=== PATIENT | female | born 1960 | race Caucasian/White ===

== ENCOUNTER 2022-04-02 07:10 | Day surgery (SDC) | payer MEDICARE ==
[~2022-04-02] VITALS: Ht 162.6 cm; Wt 99.9 kg
[~2022-04-02 07:10] MED LIST: ALBU90OI61 INH; AMIT25 PO; ASPI81CH PO; ASPI81EC PO; Anastrozole1 GM PO; Aspirin EC81 MG PO; Bactrim Ds Tab1 EACH PO; CALCA500CH PO; CALCAVITD PO; CHEMOTHERAPY; CHOL10002 PO; CIPR500 PO; CLIN150 PO; DIPATR PO; ERGO400 PO; EXEM25 PO; FISH1000; FURO20; FURO20 PO; HYDPAM50 PO; IBUP800 PO; LANS30EC PO; MORP10S; MORP30 PO; MORP30ER PO; MORPHINE PUMP; MORPHINE SU; Morphine Sulfate; NAPR220 PO; NAUSEA MED; OMEP10ER PO; OMEP20ER PO; OXYACE5T PO; OXYC30 PO; OXYC30ER PO; Omeprazole20 M1 PO; POTCHL10ER PO; PRAV20 PO; PROM25 PO; Pravastatin Sod80 MG PO; STOOL SOFTENER100 MG; Stool Softener100 MG PO; TIZA4 PO; TOCO1000 PO; [UNRECOGNIZED DRUG - OTHER]
--- NOTE | 2022-04-02 08:00 | NUR ---
History, Chart, Medications and Allergies reviewed before start of procedure. Patient States Post-Procedure ride home has been arranged.
[2022-04-02] MEDS ORDERED: FURO20 PO (08:22)
[2022-04-02] MEDS ORDERED: POTA8 PO (08:23)
--- NOTE | 2022-04-02 08:34 | NUR ---
04/02/22 0833 Samina Leal History, Chart, Medications and Allergies reviewed before start of procedure. Patient confirms NPO status and agrees with scheduled surgery. 3-LEAD EKG REVIEWED WITH PHYSICIAN PRIOR TO START OF PROCEDURE. MONITOR INTACT WITH CONTINUOUS PULSE OXIMETRY AND INTERMITTENT BP. PATIENT DETERMINED TO BE ASA APPROPRIATE FOR PROPOFOL SEDATION PRIOR TO START OF PROCEDURE BY
--- NOTE | 2022-04-02 09:38 | NUR ---
REPORT FROM SUNITHA VILLARREAL RN. PT AXOX4, ABLE TO REPOSITION SELF IN BED. REQUESTING PO FLUIDS.
--- NOTE | 2022-04-02 09:49 | NUR ---
PT TOLERATING PO FLUIDS AND FOOD, REQUESTING TO GO HOME SOON.
--- NOTE | 2022-04-02 10:11 | NUR ---
Patient up to Ambulate independently. Gait steady. Discharge instructions reviewed with patient. Patient verbalizes understanding. Copy given to patient to take home. Patient States Post-Procedure ride home has been arranged. Discharged via wheelchair to private car for ride home. ALL BELONGINGS RETURNED TO PATIENT, TO INCLUDE ONE CELL PHONE AND ONE PAIR OF GLASSES.
== END 2022-04-02 23:31 | disposition home or self-care (01) ==
LOC: ORSCMMR 07:10 → ORD 08:30 → ORSCMMR 08:30 → ORSCSDS 08:30 → ORSCMMR 23:31
PROVIDERS: Surgery
PROC: 0DB78ZX Excision of Stomach, Pylorus, Via Natural or Artificial Opening Endoscopic, Diagnostic (ICD-10-PCS; principal; 2022-04-02 08:30)
PROC: 0DJD8ZZ Inspection of Lower Intestinal Tract, Via Natural or Artificial Opening Endoscopic (ICD-10-PCS; principal; 2022-04-02 08:30)
PROC: 0DB48ZX Excision of Esophagogastric Junction, Via Natural or Artificial Opening Endoscopic, Diagnostic (ICD-10-PCS; principal; 2022-04-02 08:30)
DX: Z12.11 Encounter for screening for malignant neoplasm of colon (principal); Z86.010 Personal history of colon polyps; K21.00 Gastro-esophageal reflux disease with esophagitis, without bleeding; K29.70 Gastritis, unspecified, without bleeding; F17.210 Nicotine dependence, cigarettes, uncomplicated; Z86.73 Personal history of transient ischemic attack (TIA), and cerebral infarction without residual deficits; Z79.899 Other long term (current) drug therapy
CPT/HCPCS: 43239; G0105; 88305; 88312; 88342; J2704; J7120

== ENCOUNTER 2023-08-05 07:53 | Emergency (ER) | payer MEDICARE ==
[~2023-08-05] VITALS: Ht 162.6 cm; Wt 104.3 kg
[~2023-08-05 07:53] MED LIST changes: +POTA8 PO
[2023-08-05 08:49] VITALS: BP 131/70
[2023-08-05 09:29] LABS: BASOPHILS ABSOLUTE AUTO 0.02 K/mm3 (0.00-0.23); BASOPHILS PERCENT AUTO 0 % (0-2); EOSINOPHILS ABSOLUTE AUTO 0.05 K/mm3 (0.00-0.68); EOSINOPHILS PERCENT AUTO 1 % (0-6); Hematocrit 35.9 % (33.0-51.0); Hemoglobin 11.4 g/dL (11.5-16.0); IMMATURE GRAN ABSOLUTE AUTO 0.01 K/mm3 (0.00-0.10); IMMATURE GRAN PERCENT AUTO 0 % (0-1); LYMPHOCYTES ABSOLUTE AUTO 2.02 K/mm3 (0.84-5.20); LYMPHOCYTES PERCENT AUTO 45 % (21-46); MONOCYTES ABSOLUTE AUTO 0.33 K/mm3 (0.16-1.47); MONOCYTES PERCENT AUTO 7 % (4-13); Mean Corpuscular HGB 30.5 pg (26.0-34.0); Mean Corpuscular HGB Conc 31.8 g/dL (31.5-36.5); Mean Corpuscular Volume 96 fL (80-100); Mean Platelet Volume 10.6 fL (9.1-12.4); NEUTROPHILS ABSOLUTE AUTO 2.06 K/mm3 (1.96-9.15); NEUTROPHILS PERCENT AUTO 46 % (41-73); Platelet Count 148 K/mm3 (150-400); RDW Coefficient Variation 14.3 % (11.7-14.2); RDW Standard Deviation 50.6 fL (35.1-46.3); Red Blood Cell Count 3.74 M/mm3 (3.80-5.20); White Blood Cell Count 4.49 K/mm3 (4.00-11.30)
[2023-08-05 09:48] LABS: Albumin, Blood 3.5 g/dL (3.4-5.0); Bilirubin, Total 0.3 mg/dL (0.1-1.0); Bun/Creatinine Ratio 18.1 (12.0-20.0); Calcium, Blood 8.7 mg/dL (8.5-10.1); Creatinine, Blood 0.88 mg/dL (0.40-1.00); Globulin, Blood 3.6 g/dL (2.2-4.0); Potassium, Blood 4.1 mmol/L (3.5-5.5); Total Protein, Blood 7.1 g/dL (6.4-8.2)
== END 2023-08-05 12:38 | disposition home or self-care (01) ==
LOC: ER 07:53
PROVIDERS: Physician Assistant
DX: R07.9 Chest pain, unspecified (principal); Z88.8 Allergy status to other drugs, medicaments and biological substances; Z88.5 Allergy status to narcotic agent; Z79.899 Other long term (current) drug therapy; Z79.82 Long term (current) use of aspirin; Z85.3 Personal history of malignant neoplasm of breast; F17.200 Nicotine dependence, unspecified, uncomplicated
CPT/HCPCS: 80053; 83880; 84484; 85025; 85379; 93005; 93010; 99285-25

== ENCOUNTER 2023-09-18 03:34 | Inpatient (IN) | payer MEDICARE ==
[~2023-09-18] VITALS: Ht 162.6 cm; Wt 106.8 kg
[~2023-09-18 03:34] MED LIST changes: -CALCA500CH PO; +Calcium Carbon500 MG PO; +FURO80 PO; +VITAMIN D31000 UNI1 PO
[2023-09-18 04:04] LABS: Base Excess Venous 6.7 mmol/L; Bicarbonate Venous 29.6 mmol/L (24.0-30.0); PCO2 Venous 48.4 mmHg (38-42); pH Blood Venous 7.42 (7.34-7.37)
[2023-09-18] MEDS ORDERED: IPRAT-ALBUT 0.5-3 ML INH (04:05)
[2023-09-18] MEDS ORDERED: ROSUVASTATIN CA10 MG PO (04:05)
[2023-09-18] MEDS ORDERED: SPIRONOLACTONE25 MG PO (04:05)
[2023-09-18 04:08] LABS: BASOPHILS ABSOLUTE AUTO 0.01 K/mm3 (0.00-0.23); BASOPHILS PERCENT AUTO 0 % (0-2); EOSINOPHILS PERCENT AUTO 0 % (0-6); Hematocrit 36.6 % (33.0-51.0); Hemoglobin 11.7 g/dL (11.5-16.0); IMMATURE GRAN ABSOLUTE AUTO 0.02 K/mm3 (0.00-0.10); IMMATURE GRAN PERCENT AUTO 0 % (0-1); LYMPHOCYTES PERCENT AUTO 52 % (21-46); MONOCYTES ABSOLUTE AUTO 0.28 K/mm3 (0.16-1.47); MONOCYTES PERCENT AUTO 6 % (4-13); Mean Corpuscular Volume 94 fL (80-100); Mean Platelet Volume 10.3 fL (9.1-12.4); NEUTROPHILS ABSOLUTE AUTO 1.91 K/mm3 (1.96-9.15); NEUTROPHILS PERCENT AUTO 41 % (41-73); Platelet Count 119 K/mm3 (150-400); RDW Coefficient Variation 15.1 % (11.7-14.2); White Blood Cell Count 4.62 K/mm3 (4.00-11.30)
[2023-09-18 04:21] LABS: Albumin, Blood 3.4 g/dL (3.4-5.0); Albumin/Globulin Ratio 0.9 (0.8-1.8); Bilirubin, Total 0.2 mg/dL (0.1-1.0); Bun/Creatinine Ratio 6.3 (12.0-20.0); Calcium, Blood 8.2 mg/dL (8.5-10.1); Creatinine, Blood 0.8 mg/dL (0.40-1.00); Globulin, Blood 3.9 g/dL (2.2-4.0); Total Protein, Blood 7.3 g/dL (6.4-8.2)
[2023-09-18 04:59] LABS: Influenza A, PCR NEGATIVE (NEGATIVE); Influenza B, PCR NEGATIVE (NEGATIVE); Resp Syncytial Virus, PCR NEGATIVE (NEGATIVE); SARS-Cov-2 (COVID-19) PCR, MMC NEGATIVE (NEGATIVE)
[2023-09-18] MEDS ORDERED: ALPRAZOLAM0.5 M1 PO (06:27)
[2023-09-18] MEDS ORDERED: ESCI20 PO (06:27)
[2023-09-18] MEDS ORDERED: BUMETANIDE2 M6 PO (06:28)
[2023-09-18] MEDS ORDERED: KLOR-CON 1010 ME1 PO (06:28)
[2023-09-18 08:02] VITALS: BP 147/73
--- NOTE | 2023-09-18 11:53 | NUR ---
Received pt at 0800 from ED awake and alert x3. Audible exp wheeze noted. Pt able to move from cart to bed. Denies pain. VSS. Oriented to room and call light. BSC next to bed. Pt encouraged to call for ast as needed. Educated pt on IS and flutter valve with return demonstration. Encouraged to use 10 times/hour, just not all at one time.
--- NOTE | 2023-09-18 17:00 | NUR ---
SHIFT SUMMARY; Pt remains A&Ox3 this shift. VSS. Denies pain. Resp even nonlabored at rest with 4L NC. Increased dyspnea with exertion to BSC independently. Pt using IS and flutter appropriately. Awaiting collection of sputum for culture. Specimen container at bedside. Pt instructed to call when expectorates. Sister at bedside and will take pt purse home. No further needs id or verbalized at this time. Will continue to monitor this shift.
[2023-09-18 19:37] VITALS: BP 146/74
--- NOTE | 2023-09-19 04:24 | NUR ---
REPORT RECEIVED VERIFIED A/O, PT CALM AND QUIET AND HAS NO COMPLAINTS, RT IN WITH PT FOR TREATMENT, PT STATED SHE WOULD CALL IF NEEDING ASSISTENCE. 0200 PT UNCOMFORTABLE AND HAS LUNG PAIN, NOTIFIED AND PT ORDERED PAIN MEDICATION. PT MELANI WELL AND IS NOW SLEEPING. WILL CONT TO MONITOR
[2023-09-19 04:55] VITALS: BP 143/71
[2023-09-19 05:02] LABS: Hematocrit 35.8 % (33.0-51.0); Hemoglobin 11.4 g/dL (11.5-16.0); Mean Corpuscular HGB 30.5 pg (26.0-34.0); Mean Corpuscular HGB Conc 31.8 g/dL (31.5-36.5); Mean Corpuscular Volume 96 fL (80-100); Platelet Count 129 K/mm3 (150-400); RDW Coefficient Variation 14.7 % (11.7-14.2); RDW Standard Deviation 51.6 fL (35.1-46.3); Red Blood Cell Count 3.74 M/mm3 (3.80-5.20); White Blood Cell Count 3.87 K/mm3 (4.00-11.30)
[2023-09-19 05:50] LABS: Albumin, Blood 3.3 g/dL (3.4-5.0); Albumin/Globulin Ratio 0.9 (0.8-1.8); Bilirubin, Total 0.3 mg/dL (0.1-1.0); Bun/Creatinine Ratio 17.4 (12.0-20.0); Calcium, Blood 8.2 mg/dL (8.5-10.1); Creatinine, Blood 0.75 mg/dL (0.40-1.00); Globulin, Blood 3.8 g/dL (2.2-4.0); Total Protein, Blood 7.1 g/dL (6.4-8.2)
[2023-09-19 05:54] LABS: BAND PERCENT MAN 7 % (0-8); BASOPHILS PERCENT MAN 0 % (0-2); EOSINOPHILS PERCENT MAN 0 % (0-6); LYMPHOCYTES % ATYPICAL MANUAL 1 % (0-0); LYMPHOCYTES ABSOLUTE MAN 1.08 K/mm3 (0.84-5.20); LYMPHOCYTES PERCENT MAN 27 % (21-46); MONOCYTES ABSOLUTE MAN 0.34 K/mm3 (0.16-1.47); MONOCYTES PERCENT MAN 9 % (4-13); MYELOCYTE ABSOLUTE MAN 0.07 K/mm3 (0.00-0.00); MYELOCYTE PERCENT MAN 2 % (0-0); NEUTROPHILS ABSOLUTE MAN 2.32 K/mm3 (1.96-9.15); PLASMA CELL ABSOLUTE MAN 0.03 K/mm3 (0.00-0.00); PLASMA CELLS PERCENT MAN 1 % (0-0); SEG NEUTROPHILS PERCENT MAN 53 % (41-73); TOTAL CELLS COUNTED 100
[2023-09-19 07:44] VITALS: BP 138/76
[2023-09-19 15:53] VITALS: BP 133/67
--- NOTE | 2023-09-19 17:37 | NUR ---
SHIFT SUMMARY: Pt remains A&OX3 this shift. Denies pain. VSS. Resp even nonlabored on 1L NC. Up to BSC independently. Xanax provided for anxiety. Tolerating diet and fluids. Pain and safety maintained. Will continue to monitor.
[2023-09-19 19:42] VITALS: BP 120/65
[2023-09-20 04:40] VITALS: BP 174/83
[2023-09-20 05:06] LABS: BASOPHILS ABSOLUTE AUTO 0.01 K/mm3 (0.00-0.23); BASOPHILS PERCENT AUTO 0 % (0-2); EOSINOPHILS PERCENT AUTO 0 % (0-6); Hematocrit 36.8 % (33.0-51.0); Hemoglobin 11.6 g/dL (11.5-16.0); IMMATURE GRAN ABSOLUTE AUTO 0.03 K/mm3 (0.00-0.10); IMMATURE GRAN PERCENT AUTO 0 % (0-1); LYMPHOCYTES ABSOLUTE AUTO 1.54 K/mm3 (0.84-5.20); LYMPHOCYTES PERCENT AUTO 19 % (21-46); MONOCYTES ABSOLUTE AUTO 0.25 K/mm3 (0.16-1.47); MONOCYTES PERCENT AUTO 3 % (4-13); Mean Corpuscular HGB 30.3 pg (26.0-34.0); Mean Corpuscular HGB Conc 31.5 g/dL (31.5-36.5); Mean Corpuscular Volume 96 fL (80-100); Mean Platelet Volume 11.3 fL (9.1-12.4); NEUTROPHILS ABSOLUTE AUTO 6.22 K/mm3 (1.96-9.15); NEUTROPHILS PERCENT AUTO 77 % (41-73); Platelet Count 143 K/mm3 (150-400); RDW Coefficient Variation 15.2 % (11.7-14.2); Red Blood Cell Count 3.83 M/mm3 (3.80-5.20); White Blood Cell Count 8.05 K/mm3 (4.00-11.30)
--- NOTE | 2023-09-20 05:33 | NUR ---
REPORT RECEIVED, PT A/O VERY TIRED REQUESTED TO SLEEP SO I INFORMED RATING OFFICER THAT AFTER VITALS TO LEAVE PT TO REST. PT MEDICATED FOR EVENING MEDS BUT QUICKLY FELL BACK ASLEEP, NO S/S OF DISTRESS. 0400 PT AWOKE VSS WERE TAKENA DN LABS DONE. PT C/O PAIN TO RIGHT CHEST WALL WHEN BREATHING SO PT WAS MEDICATED. WILL ALLOW PT TO SLEEP UNLESS NEEDING ASSISTENCE
[2023-09-20 05:44] LABS: Bun/Creatinine Ratio 23.5 (12.0-20.0); Calcium, Blood 8.5 mg/dL (8.5-10.1); Creatinine, Blood 0.85 mg/dL (0.40-1.00); Potassium, Blood 4.2 mmol/L (3.5-5.5)
[2023-09-20 07:26] VITALS: BP 162/86
[2023-09-20 10:10] VITALS: BP 131/55
[2023-09-20 15:27] VITALS: BP 154/63
[2023-09-20] MEDS ORDERED: AZIT250 PO (15:56)
[2023-09-20] MEDS ORDERED: PRED20 PO (15:57)
--- NOTE | 2023-09-20 16:48 | NUR ---
Upon receiving a referral for spiritual care, I visited the patient. She tells me about the events that led to her hospitalization, the support of her sisters and the [employer] eric that means so much to her. I provide therapeutic listening, levity and prayer. Patient responded well and showed signs of reduced stress and greater peace.
--- NOTE | 2023-09-20 17:20 | NUR ---
PT DISCHARGED HOME. DISCHARGE INSTRUCTIONS DISCUSSED WITH PT. SHE HAD NO QUESTIONS OR CONCERNS. 1L NC AT DISCHARGE.
== END 2023-09-20 17:07 | disposition home or self-care (01) | DRG 189 ==
LOC: ER 03:34 → MEDS 05:55 → ER 07:53 → MEDS 07:57
PROVIDERS: Emergency Medicine; Internal Medicine; ADMIT Internal Medicine
DX: J96.01 Acute respiratory failure with hypoxia (principal); J44.1 Chronic obstructive pulmonary disease with (acute) exacerbation; F17.210 Nicotine dependence, cigarettes, uncomplicated; K44.9 Diaphragmatic hernia without obstruction or gangrene; M54.9 Dorsalgia, unspecified; G89.29 Other chronic pain; F41.9 Anxiety disorder, unspecified; F32.A Depression, unspecified; E78.5 Hyperlipidemia, unspecified; Z88.8 Allergy status to other drugs, medicaments and biological substances; Z79.899 Other long term (current) drug therapy; Z88.2 Allergy status to sulfonamides; Z79.82 Long term (current) use of aspirin; Z79.01 Long term (current) use of anticoagulants; Z98.890 Other specified postprocedural states; Z90.710 Acquired absence of both cervix and uterus; Z11.52 Encounter for screening for COVID-19; Z85.3 Personal history of malignant neoplasm of breast
CPT/HCPCS: 0241U; 36415; 71045; 80048; 80053; 82803; 83605; 83735; 83880; 84145; 84484; 85025; 85379; 93005; 93010; 93306; 94640; 94664; 94760; 94761; 96374-59; 99285-25; A9270; J0456; J0696; J1650; J1940; J2930; J3010; J7050

== ENCOUNTER 2023-09-21 19:41 | Emergency (ER) | payer MEDICARE ==
[~2023-09-21] VITALS: Ht 175.3 cm; Wt 97.5 kg
[~2023-09-21 19:41] MED LIST changes: +ALPRAZOLAM0.5 M1 PO; +AZIT250 PO; +BUMETANIDE2 M6 PO; +ESCI20 PO; +IPRAT-ALBUT 0.5-3 ML INH; +KLOR-CON 1010 ME1 PO; +PRED20 PO; +ROSUVASTATIN CA10 MG PO; +SPIRONOLACTONE25 MG PO
[2023-09-21 20:53] LABS: BASOPHILS ABSOLUTE AUTO 0.02 K/mm3 (0.00-0.23); BASOPHILS PERCENT AUTO 0 % (0-2); EOSINOPHILS ABSOLUTE AUTO 0.02 K/mm3 (0.00-0.68); EOSINOPHILS PERCENT AUTO 0 % (0-6); Hematocrit 36.3 % (33.0-51.0); Hemoglobin 11.8 g/dL (11.5-16.0); IMMATURE GRAN ABSOLUTE AUTO 0.05 K/mm3 (0.00-0.10); IMMATURE GRAN PERCENT AUTO 1 % (0-1); LYMPHOCYTES ABSOLUTE AUTO 3.06 K/mm3 (0.84-5.20); LYMPHOCYTES PERCENT AUTO 42 % (21-46); MONOCYTES ABSOLUTE AUTO 0.52 K/mm3 (0.16-1.47); MONOCYTES PERCENT AUTO 7 % (4-13); Mean Corpuscular HGB 30.3 pg (26.0-34.0); Mean Corpuscular HGB Conc 32.5 g/dL (31.5-36.5); Mean Corpuscular Volume 93 fL (80-100); NEUTROPHILS ABSOLUTE AUTO 3.55 K/mm3 (1.96-9.15); NEUTROPHILS PERCENT AUTO 49 % (41-73); NRBC ABSOLUTE 0.05 K/mm3 (0.00-0.02); NRBC Auto 0.7 /100 WBC (0.0-0.2); RDW Coefficient Variation 15.2 % (11.7-14.2); RDW Standard Deviation 51.8 fL (35.1-46.3); Red Blood Cell Count 3.89 M/mm3 (3.80-5.20); White Blood Cell Count 7.22 K/mm3 (4.00-11.30)
[2023-09-21 20:57] LABS: Albumin, Blood 3.5 g/dL (3.4-5.0); Albumin/Globulin Ratio 0.9 (0.8-1.8); Bilirubin, Total 0.4 mg/dL (0.1-1.0); Bun/Creatinine Ratio 27.2 (12.0-20.0); Creatinine, Blood 0.77 mg/dL (0.40-1.00); Globulin, Blood 3.7 g/dL (2.2-4.0); Potassium, Blood 3.8 mmol/L (3.5-5.5); Total Protein, Blood 7.2 g/dL (6.4-8.2)
[2023-09-21 20:59] LABS: Mean Platelet Volume 11.3 fL (9.1-12.4)
[2023-09-21 21:17] LABS: Influenza A, PCR NEGATIVE (NEGATIVE); Influenza B, PCR NEGATIVE (NEGATIVE); Resp Syncytial Virus, PCR NEGATIVE (NEGATIVE); SARS-Cov-2 (COVID-19) PCR, MMC NEGATIVE (NEGATIVE)
[2023-09-21 21:19] LABS: Platelet Count 137 K/mm3 (150-400)
[2023-09-22] VITALS: BP 167/81
== END 2023-09-22 00:53 | disposition home or self-care (01) ==
LOC: ER 19:41
PROVIDERS: Student in an Organized Health Care Education/Training Program
DX: J44.1 Chronic obstructive pulmonary disease with (acute) exacerbation (principal); Z88.5 Allergy status to narcotic agent; Z88.8 Allergy status to other drugs, medicaments and biological substances; Z79.899 Other long term (current) drug therapy; Z79.82 Long term (current) use of aspirin; Z85.3 Personal history of malignant neoplasm of breast; F17.200 Nicotine dependence, unspecified, uncomplicated
CPT/HCPCS: 0241U; 71046; 80053; 83880; 84484; 85025; 93005; 93010; 94640; 94664; 96374; 99285-25; J2930

== ENCOUNTER 2024-03-08 04:31 | Day surgery (SDC) | payer MEDICARE | END 2024-03-08 23:15 | disposition home or self-care (01) | LOC: WOUND 04:31 | DX: L97.822 Non-pressure chronic ulcer of other part of left lower leg with fat layer exposed (principal); L97.219 Non-pressure chronic ulcer of right calf with unspecified severity; I73.9 Peripheral vascular disease, unspecified; I87.2 Venous insufficiency (chronic) (peripheral); J44.9 Chronic obstructive pulmonary disease, unspecified; I25.10 Atherosclerotic heart disease of native coronary artery without angina pectoris; I11.0 Hypertensive heart disease with heart failure; I50.9 Heart failure, unspecified; F17.200 Nicotine dependence, unspecified, uncomplicated; I25.2 Old myocardial infarction; Z88.8 Allergy status to other drugs, medicaments and biological substances | CPT/HCPCS: G0463 ==

== ENCOUNTER 2024-10-03 13:23 | Emergency (ER) | payer MEDICARE ==
[~2024-10-03] VITALS: Ht 162.6 cm; Wt 108.9 kg
[2024-10-03 14:02] VITALS: BP 160/64
[2024-10-03 14:31] LABS: BASOPHILS ABSOLUTE AUTO 0.02 K/mm3 (0.00-0.23); BASOPHILS PERCENT AUTO 0 % (0-2); EOSINOPHILS ABSOLUTE AUTO 0.16 K/mm3 (0.00-0.68); EOSINOPHILS PERCENT AUTO 3 % (0-6); Hematocrit 33.5 % (33.0-51.0); Hemoglobin 10.1 g/dL (11.5-16.0); IMMATURE GRAN ABSOLUTE AUTO 0.02 K/mm3 (0.00-0.10); IMMATURE GRAN PERCENT AUTO 0 % (0-1); LYMPHOCYTES ABSOLUTE AUTO 1.64 K/mm3 (0.84-5.20); LYMPHOCYTES PERCENT AUTO 27 % (21-46); MONOCYTES ABSOLUTE AUTO 0.37 K/mm3 (0.16-1.47); MONOCYTES PERCENT AUTO 6 % (4-13); Mean Corpuscular HGB 28.1 pg (26.0-34.0); Mean Corpuscular HGB Conc 30.1 g/dL (31.5-36.5); Mean Corpuscular Volume 93 fL (80-100); Mean Platelet Volume 9.3 fL (9.1-12.4); NEUTROPHILS PERCENT AUTO 63 % (41-73); Platelet Count 196 K/mm3 (150-400); RDW Coefficient Variation 15.9 % (11.7-14.2); RDW Standard Deviation 54.4 fL (35.1-46.3); Red Blood Cell Count 3.59 M/mm3 (3.80-5.20); White Blood Cell Count 6.01 K/mm3 (4.00-11.30)
[2024-10-03 14:48] LABS: Albumin, Blood 3.1 g/dL (3.4-5.0); Albumin/Globulin Ratio 0.6 (0.8-1.8); Bilirubin, Total 0.4 mg/dL (0.1-1.0); Bun/Creatinine Ratio 9.6 (12.0-20.0); Creatinine, Blood 0.83 mg/dL (0.40-1.00); Globulin, Blood 5.1 g/dL (2.2-4.0); Potassium, Blood 4.3 mmol/L (3.5-5.5); Total Protein, Blood 8.2 g/dL (6.4-8.2)
== END 2024-10-03 16:49 | disposition left against medical advice (07) ==
LOC: ER 13:23
PROVIDERS: Emergency Medicine
DX: R05.9 Cough, unspecified (principal); Z53.29 Procedure and treatment not carried out because of patient's decision for other reasons
CPT/HCPCS: 80053; 85025; 93005; 93010

== ENCOUNTER 2024-10-17 10:33 | Inpatient (IN) | payer MEDICARE ==
[~2024-10-17] VITALS: Ht 162.6 cm; Wt 108.5 kg
[2024-10-17 11:31] LABS: Hematocrit 30.8 % (33.0-51.0); Hemoglobin 9.9 g/dL (11.5-16.0); Mean Corpuscular HGB Conc 32.1 g/dL (31.5-36.5); Mean Corpuscular Volume 87 fL (80-100); Mean Platelet Volume 10.6 fL (9.1-12.4); Platelet Count 166 K/mm3 (150-400); RDW Coefficient Variation 16.8 % (11.7-14.2); RDW Standard Deviation 53.6 fL (35.1-46.3); Red Blood Cell Count 3.54 M/mm3 (3.80-5.20); White Blood Cell Count 10.52 K/mm3 (4.00-11.30)
[2024-10-17] MEDS ORDERED: Clindamycin 600mg in D5W 50 ML IV ONE (11:40)
[2024-10-17 12:00] LABS: Albumin, Blood 2.5 g/dL (3.4-5.0); Albumin/Globulin Ratio 0.4 (0.8-1.8); Bilirubin, Total 1.4 mg/dL (0.1-1.0); Bun/Creatinine Ratio 24.2 (12.0-20.0); Calcium, Blood 9.1 mg/dL (8.5-10.1); Creatinine, Blood 1.57 mg/dL (0.40-1.00); Globulin, Blood 5.7 g/dL (2.2-4.0); Potassium, Blood 3.9 mmol/L (3.5-5.5); Total Protein, Blood 8.2 g/dL (6.4-8.2)
[2024-10-17 12:05] LABS: BAND PERCENT MAN 7 % (0-8); BASOPHILS PERCENT MAN 0 % (0-2); EOSINOPHILS PERCENT MAN 0 % (0-6); LYMPHOCYTES ABSOLUTE MAN 0.73 K/mm3 (0.84-5.20); LYMPHOCYTES PERCENT MAN 7 % (21-46); MONOCYTES ABSOLUTE MAN 0.21 K/mm3 (0.16-1.47); MONOCYTES PERCENT MAN 2 % (4-13); NEUTROPHILS ABSOLUTE MAN 9.57 K/mm3 (1.96-9.15); SEG NEUTROPHILS PERCENT MAN 84 % (41-73); TOTAL CELLS COUNTED 100
[2024-10-17] MEDS ORDERED: NS 1,000 ML IV SCH (12:25)
[2024-10-17] MEDS ORDERED: FLU VACC TS2024-25(6MOS UP)/PF 45 MCG/0.5 ML SYRINGE IM SCH (15:55)
[2024-10-17] MEDS ORDERED: Lactated Ringer's 1,000 ML IV SCH (15:55)
[2024-10-17] MEDS ORDERED: CeFAZolin Sodium 2,000 MG in NS 100 ML IV SCH (16:00)
[2024-10-17] MEDS ORDERED: Vancomycin HCL 2,000 MG in NS 500 ML IV ONE (16:05)
[2024-10-17] MEDS ORDERED: OxyCODONE HCL 5 MG TAB PO PRN (17:45)
[2024-10-17] MEDS ORDERED: Lactobacil 2-S.Thermo-Bifido 1 1 Cap PO SCH (21:00)
[2024-10-17 21:43] VITALS: BP 138/62
[2024-10-17] MEDS ORDERED: Nicotine 21 MG PATCH TOP SCH (22:15)
[2024-10-18 04:09] VITALS: BP 148/74
--- NOTE | 2024-10-18 04:38 | NUR ---
NEW ER ADMIT THIS SHIFT (2114) A&OX3-4, MEDICATED 1X FOR C/O PAIN IN L LEG, USING CALL LIGHT APPROPIATELY, SLEPT MOST OF SHIFT, CONTINUES ON 3L O2 WHICH IS BASELINE, WILL CONT TO MONITOR UNTIL REPORT GIVEN TO ONCOMING NURSE.
[2024-10-18 05:47] LABS: Hematocrit 28.2 % (33.0-51.0); Hemoglobin 8.8 g/dL (11.5-16.0); Mean Corpuscular HGB 28.1 pg (26.0-34.0); Mean Corpuscular HGB Conc 31.2 g/dL (31.5-36.5); Mean Corpuscular Volume 90 fL (80-100); Mean Platelet Volume 10.4 fL (9.1-12.4); Platelet Count 141 K/mm3 (150-400); RDW Standard Deviation 56.9 fL (35.1-46.3); Red Blood Cell Count 3.13 M/mm3 (3.80-5.20); White Blood Cell Count 7.06 K/mm3 (4.00-11.30)
[2024-10-18] MEDS ORDERED: Pantoprazole Sodium 20 MG Tab PO SCH (06:00)
[2024-10-18 06:27] LABS: Albumin, Blood 2.1 g/dL (3.4-5.0); Albumin/Globulin Ratio 0.4 (0.8-1.8); Bilirubin, Total 0.6 mg/dL (0.1-1.0); Creatinine, Blood 1.15 mg/dL (0.40-1.00); Potassium, Blood 3.4 mmol/L (3.5-5.5); Total Protein, Blood 7.1 g/dL (6.4-8.2)
[2024-10-18 06:38] LABS: BAND PERCENT MAN 4 % (0-8); BASOPHILS PERCENT MAN 0 % (0-2); EOSINOPHILS PERCENT MAN 0 % (0-6); LYMPHOCYTES ABSOLUTE MAN 0.63 K/mm3 (0.84-5.20); LYMPHOCYTES PERCENT MAN 9 % (21-46); MONOCYTES ABSOLUTE MAN 0.14 K/mm3 (0.16-1.47); MONOCYTES PERCENT MAN 2 % (4-13); NEUTROPHILS ABSOLUTE MAN 6.28 K/mm3 (1.96-9.15); SEG NEUTROPHILS PERCENT MAN 85 % (41-73); TOTAL CELLS COUNTED 100
[2024-10-18] MEDS ORDERED: Potassium Chloride 20 MEQ TabCR PO ONE ×2 (07:10→08:00)
[2024-10-18 07:44] VITALS: BP 144/61
[2024-10-18] MEDS ORDERED: Furosemide 10 MG/ML 4ML Vial IV SCH (09:00)
[2024-10-18] MEDS ORDERED: Enoxaparin 40 MG/0.4 ML SYR SC SCH (09:00)
[2024-10-18] MEDS ORDERED: Metoprolol Succinate 25 MG TABCR PO SCH (09:00)
[2024-10-18] MEDS ORDERED: HyDROXyzine HCl 25 MG Tab PO PRN (13:00)
[2024-10-18 15:06] VITALS: BP 141/63
[2024-10-18] MEDS ORDERED: Potassium Chloride 20 MEQ TabCR PO SCH (17:00)
[2024-10-18] MEDS ORDERED: Vancomycin HCL 1,250 MG in NS 250 ML IV SCH (17:00)
[2024-10-18] MEDS ORDERED: Metolazone 2.5 MG Tab PO SCH (18:00)
[2024-10-18] MEDS ORDERED: DRAMAMINE25 M3 PO (18:23)
[2024-10-18] MEDS ORDERED: METOPROLOL SUCC25 MG PO (18:24)
[2024-10-18] MEDS ORDERED: BUPROPION XL150 M1 PO (18:25)
[2024-10-18] MEDS ORDERED: K-Dur10 MEQ PO (18:27)
[2024-10-18] MEDS ORDERED: TORSE20 PO (18:28)
--- NOTE | 2024-10-18 18:34 | NUR ---
SHIFT SUMMARY PATIENT A/OX4, ABLE TO MAKE NEEDS KNOWN. PLEASANT AND COOPERATVIE WITH STAFF. NEW IV PLACED TO MATA USING ULTRASOUND TODAY, IV TO RAC LEAKING. FLUIDS DISCONTINUED THIS AM. PRN ROXICODONE ADMINISTERED PER MAR FOR BACK AND LEFT LEG PAIN R/T CELLULITIS. TELEMETRY IN PLACE, NO EVENTS NOTED. THIS EVENING FELL ASLEEP IN THE BED AND WOKE UP YELLING "GET THE GIRL, GET THE GIRL, THERE'S SO MUCH BLOOD" CAME TO PATIENT'S ROOM AND PATIENT WAS DROWSY AND JUST WOKE FROM SLEEPING. PATIENT REOIRENTED, INFORMED SHE WAS SAFE AND QUICKLY RETURNED TO BASELINE. PATIENT REPORTS THAT SHE HAS FREQUENT "NIGHTMARES" WHEN SHE IS IN HIGH STRESS SITUATIONS AND REPORTS THAT AT HOME SHE HAS A LOT OF STRESS CURRENTLY. NO OTHER CONCERNS AT THIS TIME.
[2024-10-18 19:22] VITALS: BP 115/57
[2024-10-18] MEDS ORDERED: DiphenhydrAMINE HCL 25 MG Cap PO ONE (23:45)
[2024-10-19 02:37] VITALS: BP 110/66
--- NOTE | 2024-10-19 03:35 | NUR ---
TENSILE TESTER SUMMARY VSS. LEFT LOWER LEG REMAINS SWOLLEN WITH SOME REDNESS. LLE ELEVATED ON PILLOW. UP WITH ASSIST TO COMMODE. O2 AT 4L/MIN PER NC. MED TELE SR AT 89. ABLE TO REPOSITION SELF IN BED WITH OUT ASSISTANCE FOR COMFORT. HAS BEEN RESTING QUIETLY WITH FEW INTERRUPTIONS, IV ANTIBIOTICS PER MD ORDERS. VOICED SOME ITCHING OF LLE, REQUESTED AND MD ORDERED ONE DOSE OF BENADRYL - MED EFFECTIVE. CALL LIGHT IN REACH, RAILS UP X 2 AND BED IN LOW POSITION FOR SAFETY. WILL CONT TO MONITOR
[2024-10-19 06:10] LABS: BASOPHILS ABSOLUTE AUTO 0.01 K/mm3 (0.00-0.23); BASOPHILS PERCENT AUTO 0 % (0-2); EOSINOPHILS ABSOLUTE AUTO 0.25 K/mm3 (0.00-0.68); EOSINOPHILS PERCENT AUTO 3 % (0-6); Hematocrit 29.6 % (33.0-51.0); Hemoglobin 9.3 g/dL (11.5-16.0); IMMATURE GRAN ABSOLUTE AUTO 0.05 K/mm3 (0.00-0.10); IMMATURE GRAN PERCENT AUTO 1 % (0-1); LYMPHOCYTES ABSOLUTE AUTO 1.63 K/mm3 (0.84-5.20); LYMPHOCYTES PERCENT AUTO 19 % (21-46); MONOCYTES PERCENT AUTO 6 % (4-13); Mean Corpuscular HGB 28.3 pg (26.0-34.0); Mean Corpuscular HGB Conc 31.4 g/dL (31.5-36.5); Mean Corpuscular Volume 90 fL (80-100); Mean Platelet Volume 10.1 fL (9.1-12.4); NEUTROPHILS ABSOLUTE AUTO 6.21 K/mm3 (1.96-9.15); NEUTROPHILS PERCENT AUTO 72 % (41-73); Platelet Count 180 K/mm3 (150-400); RDW Coefficient Variation 16.9 % (11.7-14.2); RDW Standard Deviation 56.2 fL (35.1-46.3); Red Blood Cell Count 3.29 M/mm3 (3.80-5.20); White Blood Cell Count 8.65 K/mm3 (4.00-11.30)
[2024-10-19 07:06] LABS: Anion Gap 8 mmol/L (3-11); Blood Urea Nitrogen 28 mg/dL (8-24); C-REACTIVE PROTEIN, EXT RANGE >19.000 mg/dL (0.000-0.300); CO2, Blood 31 mmol/L (21-32); Calcium, Blood 8.9 mg/dL (8.5-10.1); Chloride, Blood 100 mmol/L (98-108); Creatinine, Blood 1.27 mg/dL (0.40-1.00); Glomerular Filtration Rate 47 (60-); Glucose, Blood 131 mg/dL (70-99); Potassium, Blood 3.9 mmol/L (3.5-5.5); Sodium, Blood 135 mmol/L (136-145)
[2024-10-19 07:11] VITALS: BP 133/76
[2024-10-19] MEDS ORDERED: Atorvastatin 10 MG Tab PO SCH (09:00)
[2024-10-19 15:02] VITALS: BP 130/57
--- NOTE | 2024-10-19 18:12 | NUR ---
SHIFT SUMMARY PATIENT A/OX4, ABLE TO MAKE NEEDS KNOWN. PLEASANT AND COOPERATIVE WITH CARE. ABLE TO HAVE SHOWER THIS MORNING. IV ABX INFUSED PER DEC. OXYCODONE ADMINISTERED PER MAR FOR LEFT LEG PAIN R/T CELLULITIS. CONTINUES WITH 3LPM OXYGEN USE, WHICH IS BASELINE. PARTICIPATED IN OCCUPATIONAL THERAPY THIS AFTERNOON AND HOME HEALTH RECOMMENDED AT DISCHARGE. NO OTHER CONCERNS AT THIS TIME.
[2024-10-19] MEDS ORDERED: diphenhydrAMINE HCL 25 MG/10 ML UDC PO ONE (20:35)
[2024-10-19] MEDS ORDERED: DiphenhydrAMINE HCL 25 MG Cap PO ONE (20:45)
[2024-10-19 20:55] VITALS: BP 106/54
[2024-10-20 05:32] VITALS: BP 127/61
[2024-10-20 05:55] LABS: BASOPHILS ABSOLUTE AUTO 0.02 K/mm3 (0.00-0.23); BASOPHILS PERCENT AUTO 0 % (0-2); EOSINOPHILS ABSOLUTE AUTO 0.25 K/mm3 (0.00-0.68); EOSINOPHILS PERCENT AUTO 3 % (0-6); Hematocrit 30.3 % (33.0-51.0); Hemoglobin 9.5 g/dL (11.5-16.0); IMMATURE GRAN ABSOLUTE AUTO 0.09 K/mm3 (0.00-0.10); IMMATURE GRAN PERCENT AUTO 1 % (0-1); LYMPHOCYTES ABSOLUTE AUTO 1.97 K/mm3 (0.84-5.20); LYMPHOCYTES PERCENT AUTO 25 % (21-46); MONOCYTES ABSOLUTE AUTO 0.65 K/mm3 (0.16-1.47); MONOCYTES PERCENT AUTO 8 % (4-13); Mean Corpuscular HGB 27.9 pg (26.0-34.0); Mean Corpuscular HGB Conc 31.4 g/dL (31.5-36.5); Mean Corpuscular Volume 89 fL (80-100); NEUTROPHILS ABSOLUTE AUTO 4.96 K/mm3 (1.96-9.15); NEUTROPHILS PERCENT AUTO 63 % (41-73); Platelet Count 206 K/mm3 (150-400); RDW Standard Deviation 56.1 fL (35.1-46.3); White Blood Cell Count 7.94 K/mm3 (4.00-11.30)
[2024-10-20 06:33] LABS: Bun/Creatinine Ratio 22.7 (12.0-20.0); Calcium, Blood 8.9 mg/dL (8.5-10.1); Creatinine, Blood 1.28 mg/dL (0.40-1.00); Potassium, Blood 3.9 mmol/L (3.5-5.5)
--- NOTE | 2024-10-20 06:44 | NUR ---
SHIFT SUMMARY NOC PT A/O X 4. PLEASANT AND COOPERATIVE WITH CARE. VSS. NO ACUTE EVENTS TO REPORT. PT RECEIVING IV ABX FOR LLE CELLULITIS. PAIN BEING MANAGED PER EMAR. PT ON O2 3L/NC SPO2 >92%. C/O OF EXCESS ITCHING AND REQUESTED BENADRYL ALONG WITH ATARAX WITH GOOD EFFECT. PT ON TELE SIUS TACH IN LOW 100'S. PT POSSIBLE DISCHARGE TODAY TO [facility] WITH HOME HEALTH. PT CURRENTLY RESTING WITH BED IN LOWEST POSITION, AND CALL LIGHT WITHIN REACH.
[2024-10-20 07:45] VITALS: BP 125/54
[2024-10-20] MEDS ORDERED: Doxycycline Hyclate 100 MG in Dextrose 5% 250 ML IV ONE (13:10)
--- NOTE | 2024-10-20 13:35 | NUR ---
Pt. is awake and sitting up in a chair when she welcomes my visit. Pt. is pleasant and quickly verbalizes that she will be discharging soon. Facilitated a short life review and listened with empathy and interest. Pt. displayed evidence of engagement and good humor. Prayed with the Pt. Pt. verbalized gratitude for the spiritual care visit.
[2024-10-20] MEDS ORDERED: Doxycycline Hyclate 100 MG TAB PO ONE (14:00)
[2024-10-20] MEDS ORDERED: OXYC5 PO (14:09)
[2024-10-20] MEDS ORDERED: DOXY100 PO (14:09)
[2024-10-20] MEDS ORDERED: VISBIOME 112.51 EACH PO (14:09)
--- NOTE | 2024-10-20 14:31 | NUR ---
DISCHARGE NOTE: WENT OVER DISCHARGE WITH PATIENT. HER TELE AND IV WERE REMOVED, SHE GOT DRESSED AND BELONGINGS COLLECTED. PATIENT WAS WHEELED DOWN BY ELEVATOR EXAMINER, NO SIGNS OR SYMPTOMS OF DISTRESS WITH DISCHARGE.
== END 2024-10-20 14:27 | disposition home health service (06) | DRG 603 ==
LOC: ER 10:33 → ERHOLD 10:34 → MEDS 15:51 → ENPENDDIS 10-20 13:13 → MEDS 10-20 14:27
PROVIDERS: Emergency Medicine; Student in an Organized Health Care Education/Training Program; ADMIT Internal Medicine
DX: L03.116 Cellulitis of left lower limb (principal); J96.11 Chronic respiratory failure with hypoxia; Z68.41 Body mass index [BMI] 40.0-44.9, adult; J44.9 Chronic obstructive pulmonary disease, unspecified; Z66 Do not resuscitate; G89.29 Other chronic pain; M54.50 Low back pain, unspecified; Z60.2 Problems related to living alone; E66.01 Morbid (severe) obesity due to excess calories; I50.9 Heart failure, unspecified; E78.5 Hyperlipidemia, unspecified; K21.9 Gastro-esophageal reflux disease without esophagitis; F17.200 Nicotine dependence, unspecified, uncomplicated; Z88.5 Allergy status to narcotic agent; Z88.8 Allergy status to other drugs, medicaments and biological substances; Z79.82 Long term (current) use of aspirin; Z79.899 Other long term (current) drug therapy; Z90.710 Acquired absence of both cervix and uterus; Z90.12 Acquired absence of left breast and nipple; Z99.81 Dependence on supplemental oxygen
CPT/HCPCS: 36415; 71046; 73590; 73630; 73701; 76882; 80048; 80053; 83605; 83880; 85025; 85651; 86140; 87040; 93005; 93010; 94760; 94762; 96365-59; 97110; 97116; 97161; 97530; 99285-25; A9270; J0690; J1650; J1940; J2470; J3370; J7030; J7040; J7050; J7120; Q9967

== ENCOUNTER 2024-11-10 06:09 | Day surgery (SDC) | payer MEDICARE ==
[~2024-11-10 06:09] MED LIST changes: +BUPROPION XL150 M1 PO; +DOXY100 PO; +DRAMAMINE25 M3 PO; +K-Dur10 MEQ PO; +METOPROLOL SUCC25 MG PO; +OXYC5 PO; +TORSE20 PO; +VISBIOME 112.51 EACH PO
== END 2024-11-10 23:00 | disposition home or self-care (01) ==
LOC: WOUND 06:09
DX: I89.0 Lymphedema, not elsewhere classified (principal); L03.116 Cellulitis of left lower limb; J44.9 Chronic obstructive pulmonary disease, unspecified; I25.10 Atherosclerotic heart disease of native coronary artery without angina pectoris; I50.9 Heart failure, unspecified; Z88.8 Allergy status to other drugs, medicaments and biological substances; Z88.5 Allergy status to narcotic agent
CPT/HCPCS: G0463

== ENCOUNTER 2025-04-12 00:44 | Day surgery (SDC) | payer MEDICARE ==
[2025-04-12] MEDS ORDERED: Lidocaine HCl 4% Cream 5 GM ONE (09:51)
== END 2025-04-12 23:00 | disposition home or self-care (01) ==
LOC: WOUND 00:44
DX: L97.812 Non-pressure chronic ulcer of other part of right lower leg with fat layer exposed (principal); I87.2 Venous insufficiency (chronic) (peripheral); F17.210 Nicotine dependence, cigarettes, uncomplicated; J44.9 Chronic obstructive pulmonary disease, unspecified; I25.10 Atherosclerotic heart disease of native coronary artery without angina pectoris; I50.9 Heart failure, unspecified
CPT/HCPCS: A6213; A9270

== ENCOUNTER 2025-05-11 08:33 | Day surgery (SDC) | payer MEDICARE ==
[2025-05-11] MEDS ORDERED: Lidocaine HCl 4% Cream 5 GM ONE (08:35)
== END 2025-05-11 23:00 | disposition home or self-care (01) ==
LOC: WOUND 08:33
DX: L97.812 Non-pressure chronic ulcer of other part of right lower leg with fat layer exposed (principal); I87.2 Venous insufficiency (chronic) (peripheral); F17.210 Nicotine dependence, cigarettes, uncomplicated
CPT/HCPCS: A9270

== ENCOUNTER 2025-05-17 02:11 | Day surgery (SDC) | payer MEDICARE ==
[2025-05-17] MEDS ORDERED: Lidocaine HCl 4% Cream 5 GM ONE (09:49)
== END 2025-05-17 23:00 | disposition home or self-care (01) ==
LOC: WOUND 02:11
DX: L97.811 Non-pressure chronic ulcer of other part of right lower leg limited to breakdown of skin (principal); I87.2 Venous insufficiency (chronic) (peripheral); F17.210 Nicotine dependence, cigarettes, uncomplicated
CPT/HCPCS: A9270

== ENCOUNTER 2025-05-31 03:42 | Day surgery (SDC) | payer MEDICARE ==
[2025-05-31] MEDS ORDERED: Lidocaine HCl 4% Cream 5 GM ONE (10:50)
== END 2025-05-31 23:00 | disposition home or self-care (01) ==
LOC: WOUND 03:42
DX: L97.812 Non-pressure chronic ulcer of other part of right lower leg with fat layer exposed (principal); I87.2 Venous insufficiency (chronic) (peripheral); F17.210 Nicotine dependence, cigarettes, uncomplicated; J44.9 Chronic obstructive pulmonary disease, unspecified; I83.812 Varicose veins of left lower extremity with pain; I25.10 Atherosclerotic heart disease of native coronary artery without angina pectoris; I50.9 Heart failure, unspecified
CPT/HCPCS: 93971; A9270

== ENCOUNTER 2025-06-28 03:22 | Day surgery (SDC) | payer MEDICARE ==
[2025-06-28] MEDS ORDERED: Lidocaine HCl 4% Cream 5 GM ONE (11:19)
== END 2025-06-28 23:10 | disposition home or self-care (01) ==
LOC: WOUND 03:22
DX: L97.812 Non-pressure chronic ulcer of other part of right lower leg with fat layer exposed (principal); I87.2 Venous insufficiency (chronic) (peripheral); F17.210 Nicotine dependence, cigarettes, uncomplicated; J44.9 Chronic obstructive pulmonary disease, unspecified; I25.10 Atherosclerotic heart disease of native coronary artery without angina pectoris; I50.9 Heart failure, unspecified
CPT/HCPCS: A6213; A9270

== ENCOUNTER 2025-07-12 00:23 | Day surgery (SDC) | payer MEDICARE | END 2025-07-12 23:00 | disposition home or self-care (01) | LOC: WOUND 00:23 | DX: L97.812 Non-pressure chronic ulcer of other part of right lower leg with fat layer exposed (principal); I87.2 Venous insufficiency (chronic) (peripheral); F17.210 Nicotine dependence, cigarettes, uncomplicated | CPT/HCPCS: A6213; G0463 ==